=== PATIENT | female | born 1965 | race Caucasian/White ===

== ENCOUNTER 2017-06-07 16:15 | Inpatient (IN) | payer OTHER, MEDICAID ==
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
[2017-06-07] MEDS ORDERED: HALOPERIDOL LACT 5 MG/ML INJ IM ONE (16:36)
[2017-06-07 18:48] LABS: % IMMATURE GRANULYOCYTES 0.6 % (0.0-1.1); ABSOLUTE IMMATURE GRANULOCYTES 0.05 10^3/uL (0.00-0.10); ADD DIFF? NO; ADD MORPH? NO; ADD SCAN? NO; ATYPICAL LYMPHOCYTE FLAG 10 (0-99); FRAGMENT RBC FLAG 0 (0-99); HEMATOCRIT 35.8 % (38.0-47.0); HEMOGLOBIN 12.8 g/dL (12.6-16.3); LEFT SHIFT FLG 0 (0-99); LIPEMIA HEMOLYSIS FLAG 90 (0-99); MEAN CELL HEMOGLOBIN CONCENTR. 35.8 g/dL (32.4-36.7); MEAN CELL VOLUME 89.5 fL (81.5-99.8); MEAN PLATELET VOLUME 10.1 fL (8.7-11.7); PLATELET CLUMPS FLAG 0 (0-99); PLATELET COUNT 214 10^3/uL (150-400); RED CELL DISTRIBUTION WIDTH 12.4 % (11.5-15.2)
[2017-06-07 18:57] LABS: ANION GAP 11 mEq/L (8-16); CALCIUM 9.5 mg/dL (8.5-10.4); CARBON DIOXIDE 19 mEq/l (22-31); CHLORIDE 109 mEq/L (97-110); ETHANOL SERUM < 10 mg/dL (0-10); GLOMERULAR FILTRATION RATE 58; GLUCOSE 115 mg/dL (70-100); POTASSIUM 3.2 mEq/L (3.5-5.2); SALICYLATE < 1.0 mg/dL (2.0-20.0); SODIUM 139 mEq/L (134-144)
[2017-06-08] MEDS ORDERED: POTASSIUM CL 20 MEQ/15 ML UDCUP PO ONE (15:30)
[2017-06-08] MEDS ORDERED: MONTELUKAST SODIUM 10 MG TAB PO ONE (17:36)
[2017-06-08] MEDS ORDERED: LEVOTHYROXINE 112 MCG TAB PO ONE (17:38)
[2017-06-09] MEDS ORDERED: LEVOTHYROXINE 112 MCG TAB PO SCH (06:00)
[2017-06-09] MEDS: TOPIRAMATE 100 MG TAB PO SCH (08:26)
[2017-06-09] MEDS: TIOTROPIUM INHALER 18 MCG/DOSE 5 DOSE/MDI IH SCH (08:30)
[2017-06-09 14:31] VITALS: O2SAT 95
[2017-06-09] MEDS ORDERED: NICOTINE POLACRILEX 2 MG GUM B PRN (16:15)
[2017-06-09] MEDS ORDERED: LORazepam 0.5 MG TAB PO PRN (16:15)
[2017-06-09] MEDS ORDERED: MAGNESIUM HYDROXIDE 30 ML UDCUP PO PRN (16:15)
[2017-06-09] MEDS ORDERED: ACETAMINOPHEN 325 MG TAB PO PRN (16:15)
[2017-06-09] MEDS ORDERED: OLANZapine DISINTEGR 10 MG TAB PO PRN (16:15)
[2017-06-09] MEDS ORDERED: MAG HYDROX/AL HYDROX/SIMETH 30 ML UDCUP PO PRN (16:15)
[2017-06-09] MEDS ORDERED: LORazepam 1 MG TAB PO ONE (16:22)
[2017-06-09] MEDS ORDERED: HALOPERIDOL 5 MG TAB PO ONE (16:23)
[2017-06-09] MEDS ORDERED: LORazepam 2 MG/ML INJ IM PRN ×2 (16:24→16:38)
[2017-06-09] MEDS ORDERED: HALOPERIDOL LACT 5 MG/ML INJ IM PRN ×3 (16:24→16:38)
[2017-06-09] MEDS ORDERED: BENZTROPINE MESYLATE 2 MG/2 ML INJ IM PRN ×2 (16:27→16:38)
[2017-06-09] MEDS ORDERED: diphenhydrAMINE 50 MG CAP PO SCH (16:30)
[2017-06-09] MEDS ORDERED: MONTELUKAST SODIUM 4 MG CHEWABLE TAB PO SCH (18:00)
[2017-06-09] MEDS ORDERED: LURASIDONE HCL 20 MG TAB PO SCH (18:00)
[2017-06-09] MEDS ORDERED: MONTELUKAST SODIUM 10 MG TAB PO SCH (18:00)
[2017-06-09] MEDS: OLANZapine DISINTEGR 10 MG TAB PO SCH (19:48)
[2017-06-09] MEDS: BENZTROPINE MESYLATE 1 MG TAB PO SCH (19:48)
[2017-06-09] MEDS: LORazepam 1 MG TAB PO SCH (21:07)
[2017-06-10] MEDS: LORazepam 1 MG TAB PO SCH (08:26)
[2017-06-10] MEDS: TOPIRAMATE 100 MG TAB PO SCH ×2 (08:26→20:56)
[2017-06-10] MEDS: OLANZapine DISINTEGR 5 MG TAB PO SCH (08:27)
[2017-06-10] MEDS: BENZTROPINE MESYLATE 1 MG TAB PO SCH ×2 (08:27→20:56)
[2017-06-10] MEDS: TIOTROPIUM INHALER 18 MCG/DOSE 5 DOSE/MDI IH SCH (08:28)
[2017-06-10] MEDS ORDERED: LEVOTHYROXINE 112 MCG TAB PO SCH (10:00)
[2017-06-10] MEDS ORDERED: TROLAMINE SALICYLATE TP PRN ×2 (11:21→11:32)
[2017-06-10] MEDS ORDERED: ALOE VERA TP PRN ×2 (11:21→11:32)
[2017-06-10] MEDS ORDERED: NON-FORMULARY NEW DRUG (Omeprazole [Prilosec 20 Mg] 20 MG) PO SCH (11:30)
[2017-06-10] MEDS: PANTOPRAZOLE SODIUM 40 MG TAB PO SCH (13:59)
[2017-06-10] MEDS: LURASIDONE HCL 80 MG TAB PO SCH (13:59)
--- NOTE | 2017-06-10 14:46 | BCON ---
[f rep st] BEHAVIORAL HEALTH CONSULTATION INTERNAL MEDICINE CONSULTATION DATE OF CONSULTATION: 06/10/2017 REFERRING PHYSICIAN: Clay Gonzalez MD REASON FOR REFERRAL: Medical clearance for inpatient behavioral health stay. HISTORY OF PRESENT ILLNESS: This patient was brought to the [facility] Emergency Department on 06/07/2017. She has a history of bipolar disorder and she was agitated at the group home facility where she lives. She continued to be agitated in the emergency department and had emergency medications. She was eventually evaluated by the mental health team and admitted for further psychiatric care. PAST MEDICAL HISTORY: 1. Bipolar disorder. 2. Hypertension. 3. Hypothyroidism. 4. Fall, most recently 3 months ago. 5. History of seizures following a fall and head trauma. PAST SURGICAL HISTORY: She has had lumbar surgery, she reports L4-L5, and she has had knee surgery. MEDICATIONS: Prior to admission: 1. Acetaminophen 1000 mg p.o. q.8 hours p.r.n. 2. Levothyroxine 112 mcg p.o. daily. 3. Lurasidone 80 mg p.o. daily. 4. Montelukast 10 mg p.o. daily at 1800. 5. Omeprazole 20 mg p.o. daily. 6. Tiotropium 18 mcg inhaled daily. 7. Topiramate 200 mg p.o. twice daily. 8. Aspercreme 85 g topical q.3 hours p.r.n. 9. Clonidine 0.1 mg p.o. daily and 0.2 mg p.o. twice daily at 1800 and 2100. ALLERGIES: There is an allergy listed to penicillins. SOCIAL HISTORY: She is not . She has no children. She lives at [facility] for approximately the past year. 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 She is a tobacco smoker. Regarding the positive urine drug screen for marijuana, she reports that she does not smoke herself, but she assists people who are smoking and may not be able to hold their pipe, and gets secondhand marijuana smoke exposure. FAMILY HISTORY: Noncontributory. REVIEW OF SYSTEMS: She reports leg swelling. She says that Lasix was not effective to manage the swelling. She has some pain due to the swelling. She denies recent weight change, fevers, chills, cough, dyspnea, nausea, vomiting, constipation, diarrhea, dysuria or urinary frequency. Otherwise, a 10-point review of systems was negative. PHYSICAL EXAM: VITAL SIGNS: Blood pressure is 124/63, heart rate 67, respiratory rate 14, oxygen saturation 95% on room air, temperature 36.7 degrees centigrade. Her weight is 81.6 kg for a body mass index of 30.9. GENERAL : This is a well-nourished, well-developed, obese woman, sitting in the dining room, coloring in a coloring book, cooperative and in no acute distress. HEENT: Extraocular movements are intact. Pupils are equal, round, reactive to light. Mucous membranes are moist. She is edentulous. She has an uncrowded airway, Mallampati class 1. There are no oropharyngeal mucosal lesions. NECK: Supple. HEART: There is a regular rate and rhythm with no murmurs, rubs, or gallops. LUNGS: Clear to auscultation bilaterally. ABDOMEN: Benign. EXTREMITIES: There is no cyanosis or clubbing. There is 2+ edema to the left lower extremity pretibial, and trace to 1+ on the right. Radial pulses are 2+ bilaterally. Pedal pulses are not detectable. NEUROLOGIC: She is alert, she is oriented to her current situation and reports that she desires to return to [place]. Orientation to date was not tested. Cranial nerves 2-12 are grossly intact. There is no focal weakness. Sensation is intact to light touch. There is no tremor. LABORATORY STUDIES: From the emergency department, CBC showed very mild anemia with a hematocrit of 35.8, hemoglobin was normal as was the rest of the CBC. Serum chemistry revealed a low potassium at 3.2 and a low carbon dioxide at 19; otherwise, renal function and electrolytes were within normal limits. Glucose was elevated at 115 but this may not have been fasting. Toxicology screen in the serum was negative for salicylates, acetaminophen or ethyl alcohol. Toxicology screen in the urine was non-negative for marijuana but otherwise negative for substances of abuse. ASSESSMENT/RECOMMENDATIONS: 1. Mental health issues, pending further evaluation and management per Psychiatry and the mental health team. 2. Edema. She reports this has been long-standing. I do not have suspicion for deep venous thrombosis. She would probably benefit from compression stockings but most likely, these would be contraindicated in the setting of the inpatient behavioral health unit. She appears to have normal renal function. I will not pursue the edema further,. She can follow up with Primary Care after her discharge. 3. Hypertension, appears to be adequately controlled with clonidine. This is not first-line medication and it is unclear how clonidine became her antihypertensive. I imagine it might be beneficial regarding psychiatric issues as it reduces central sympathetic discharge. If blood pressure is not adequately controlled, might consider addition of spironolactone at a low dose. 4. Hypokalemia of unclear etiology. She reports that she has been on furosemide in the past. She had potassium supplementation in the emergency department. I do not see a need to repeat labs at present. She can follow up with Primary Care after her discharge. 5. Tobacco dependence syndrome. Encouraged smoking cessation. 6. Hypothyroidism. If her behavior proves refractory to other measures, consider checking TSH, but she did not appear to be overtly hypo or hyperthyroid at present. 7. Obesity. Advise caution regarding medications that could cause additional weight gain. 8. Seizure disorder, presumably this is why she is on topiramate. Advise continuing this medication. I see no medical contraindication to this patient's continued stay on the inpatient behavioral health unit or to any psychiatric medications or procedures. Thank you very much for including me in the care of this patient. Please do not hesitate to contact me or the hospitalist service should there be need for further medical evaluation. /[id number]/MODL MTDD
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
[2017-06-10] MEDS: OLANZapine DISINTEGR 10 MG TAB PO SCH (20:56)
[2017-06-11] MEDS: LEVOTHYROXINE 112 MCG TAB PO SCH (06:07)
[2017-06-11] MEDS: TIOTROPIUM INHALER 18 MCG/DOSE 5 DOSE/MDI IH SCH (09:21)
[2017-06-11] MEDS: LURASIDONE HCL 80 MG TAB PO SCH (09:21)
[2017-06-11] MEDS: TOPIRAMATE 100 MG TAB PO SCH ×2 (09:21→19:52)
[2017-06-11] MEDS: OLANZapine DISINTEGR 5 MG TAB PO SCH (09:22)
[2017-06-11] MEDS: BENZTROPINE MESYLATE 1 MG TAB PO SCH ×2 (09:22→19:51)
[2017-06-11] MEDS: PANTOPRAZOLE SODIUM 40 MG TAB PO SCH (09:22)
[2017-06-11] MEDS ORDERED: PNEUMOCOCCAL 0.5ML VACCINE VIAL IM ONE (15:00)
--- NOTE | 2017-06-11 16:24 | SOAPPROG ---
SOAP Progress Note Assessment/Plan: Assessment: Plan: 06/11/17 16:24 Doing well. No evidence of unstable illness at this time. No behavioral issues. Will CCM, contact SNF to arrange d/c plan. Subjective: Pt seen, discussed with staff. Calm and appropriate. INteracting well with others. No irritability or aggression. Able to discuss situation preceding admission and she identifies the interpersonal conflict with the RN and other stressors as being inciting factors for her aggression. Compliant with all meds here. Objective: Vital Signs Temp Pulse Resp BP Pulse Ox 36.7 C 75 14 102/63 95 06/11/17 06:00 06/11/17 06:00 06/11/17 06:00 06/11/17 10:24 06/11/17 06:00 - Time Spent With Patient Time Spent With Patient: 25" ICD10 Worksheet Patient Problems: Problems Problem Status Onset Acute psychosis Acute
[2017-06-11] MEDS: OLANZapine DISINTEGR 10 MG TAB PO SCH (19:51)
[2017-06-12] MEDS: LEVOTHYROXINE 112 MCG TAB PO SCH (06:06)
[2017-06-12 06:43] VITALS: BP 131/77; PULSE 109; RESP 18; TEMP 99
[2017-06-12] MEDS: TIOTROPIUM INHALER 18 MCG/DOSE 5 DOSE/MDI IH SCH (08:43)
[2017-06-12] MEDS: BENZTROPINE MESYLATE 1 MG TAB PO SCH (08:43)
[2017-06-12] MEDS: OLANZapine DISINTEGR 5 MG TAB PO SCH (08:44)
[2017-06-12] MEDS: TOPIRAMATE 100 MG TAB PO SCH (08:44)
[2017-06-12] MEDS: PANTOPRAZOLE SODIUM 40 MG TAB PO SCH (08:44)
[2017-06-12] MEDS: LURASIDONE HCL 80 MG TAB PO SCH (08:44)
== END 2017-06-12 13:22 | DRG 885 ==
LOC: EDUNIT# → BBEH 06-09 15:17
PROVIDERS: ADMIT Psychiatry & Neurology Psychiatry; ATTEND Psychiatry & Neurology Psychiatry
DX: F25.0 Schizoaffective disorder, bipolar type (principal); E87.6 Hypokalemia; I10 Essential (primary) hypertension; E03.9 Hypothyroidism, unspecified; R56.1 Post traumatic seizures; F17.210 Nicotine dependence, cigarettes, uncomplicated; J44.9 Chronic obstructive pulmonary disease, unspecified; E66.9 Obesity, unspecified; Z68.30 Body mass index [BMI] 30.0-30.9, adult
CPT/HCPCS: 80305; G0009; G0480

== ENCOUNTER 2018-11-23 08:05 | Emergency (ER) | payer OTHER, MEDICAID ==
--- NOTE | 2018-11-23 08:07 | EDPHY ---
H & P Time Seen by Provider: 11/23/18 08:07 HPI/ROS: CHIEF COMPLAINT: Head injury HISTORY OF PRESENT ILLNESS: Patient is a resident at [facility] and went out at 2:00 a.m. To buy cigarettes. She says she tripped and fell down hitting her head and thinks she had a loss of consciousness for 20-30 minutes based on her watch. She was sent to the ER this morning for evaluation after staff noticed a scalp laceration. Right now the patient denies any medical complaints. She denies headache or weakness or numbness in extremities or chest pain or shortness of breath. She thinks that it was mechanical and not syncope. REVIEW OF SYSTEMS: Eye: no change in vision ENT: no sore throat Cardiac: no chest pain or syncope Pulmonary: no cough or SOB Abdomen: no vomiting, diarrhea, abdominal pain Musculoskeletal: no back pain or neck pain or extremity pain, does have chronic lower extremity edema Skin: Skin laceration Neuro: no headache Constitutional: no fever : no urinary symptoms A comprehensive 10 point review of systems is otherwise negative aside from elements mentioned in the history of present illness. PAST MEDICAL HISTORY: Includes bipolar, hypothyroid, seizure disorder, hypertension, PTSD, COPD Social history: Smoker General Appearance: Alert and conversant, cooperative. Eyes: No scleral icterus. Pupils equal reactive extraocular motion intact. ENT, Mouth: No tongue laceration or abrasion. Respiratory: Normal respiratory effort, breath sounds equal, lungs are clear to auscultation. Cardiovascular: Regular rate and rhythm. Gastrointestinal: Abdomen is soft and non tender. Neurological: Alert, face symmetric, normal motor and sensory in extremities. Normal mentation, answers questions appropriately. Not tremulous. Skin: 2.5 cm occipital scalp laceration. Musculoskeletal: Some bilateral peripheral edema, no extremity bony tenderness. No thoracic or lumbar spine tenderness to palpation. She does have midline C-spine tenderness to palpation. Psychiatric: Not agitated. Emergency Department course/MDM: Differential diagnosis considered for head injury including but not limited to concussion, skull fracture, intraparenchymal contusion, subarachnoid, subdural and epidural hematoma. Appears by history to be mechanical fall with likely concussion, doubt seizure or syncope. CT head for head trauma and loss of consciousness, cervical spine because fails nexus criteria. Procedure: Laceration repair. Verbal consent was obtained from the patient. The 2.5 cm laceration on the scalp was anesthetized using 0.5% bupivacaine with epinephrine. The wound was irrigated with standard emergency department protocol, draped and explored. There were no deep structures involved. No foreign body found. The wound was repaired with dana. The wound repair was simple. Excellent hemostasis was obtained. Wound care instructions were discussed and the patient was warned regarding scarring. The procedure was performed by myself. 855: Negative head and cervical spine CT for trauma. Smoking Status: Heavy smoker Constitutional: Initial Vital Signs Temperature (C) 36.8 C 11/23/18 08:12 Heart Rate 79 11/23/18 08:12 Respiratory Rate 16 11/23/18 08:12 Blood Pressure 105/71 11/23/18 08:12 O2 Sat (%) 100 11/23/18 08:12 O2 Delivery Mode Room Air Allergies/Adverse Reactions: Penicillins Allergy (Verified 06/07/17 18:07) Home Medications: Medication Instructions Recorded Acetaminophen [Tylenol ES 500 mg 1,000 mg PO Q8 PRN 06/08/17 (*)] Trolamine Salicylate/Aloe Vera 85 gm TP Q3HRS PRN 06/08/17 [Aspercreme 10% Cream] Benztropine Mesylate [Cogentin] 1 mg PO BID #60 tab 06/12/17 Levothyroxine [Synthroid 112 mcg 112 mcg PO DAILY06 #30 tab 06/12/17 (*)] Lurasidone HCl [Latuda] 80 mg PO DAILY #30 tab 06/12/17 Montelukast Sodium [Singulair 10 10 mg PO DAILY@1800 #30 tab 06/12/17 mg (*)] Omeprazole [Prilosec 20 mg] 20 mg PO DAILY #30 capsule.dr 06/12/17 Tiotropium Inhaler [Spiriva 18 mcg IH DAILY #1 mdi 06/12/17 Handihaler] Topiramate [Topamax 100MG (*)] 200 mg PO BID #120 tab 06/12/17 Medical Decision Making - Diagnostics Imaging Results: Imaging Impressions Cervical Spine CT 11/23/18 08:11 Impression: 1. No definite acute cervical spine fracture. 2. Postsurgical changes at C5-C6 and C7-T1. 3. Multilevel degenerative disk disease resulting in mild to moderate central canal stenosis at C3-C4, C4-C5, C6-C7, and C7-T1. 4. If there is persistent pain or neurological deficit, recommend MRI cervical spine and consider flexion and extension views, if clinically indicated. Findings and recommendations discussed with emergency department physician, Kyaw Hernandez MD at 0850 hours on November 23, 2018. Final report concurs with initial preliminary interpretation. Head CT 11/23/18 08:11 Impression: 1. Normal CT brain without contrast. 2. Right occipital scalp laceration. No skull fracture. Findings and recommendations discussed with emergency department physician, Kyaw Hernandez MD at 0850 hours on November 23, 2018. Final report concurs with initial preliminary interpretation. Imaging: Discussed imaging studies w/ teacher physically impaired Radiologist - Data Points Medications Given: Discontinued Medications Diphtheria/Tetanus/Acell Pertussis (Boostrix) 0.5 ml IM .ONCE ONE Stop: 11/23/18 08:12 Last Admin: 11/23/18 08:16 Dose: 0.5 ml Departure - Departure Disposition: Home, Routine, Self-Care Clinical Impression: Occipital scalp laceration Qualifiers: Encounter type: initial encounter Qualified Code(s): S01.01XA - Laceration without foreign body of scalp, initial encounter Concussion Qualifiers: Encounter type: initial encounter Loss of consciousness presence/duration: with LOC of 30 min or less Qualified Code(s): S06.0X1A - Concussion with loss of consciousness of 30 minutes or less, initial encounter Condition: Good Instructions: Laceration (ED), Concussion (ED) Additional Instructions: Wound Care Follow-Up: Removal of sutures in 10 days. Suture removal is complimentary in uncomplicated cases. Infection or abnormal findings would require reevaluation by the MD. In that case, you may be billed. Referrals: Farideh Chadwick MD [Medical Doctor] - As per Instructions
[2018-11-23] MEDS ORDERED: TDAP ADULT 0.5 ML INJ (BOOSTRIX) IM ONE (08:11)
[2018-11-23 09:51] VITALS: BP 101/73
== END 2018-11-23 10:59 | disposition home or self-care (01) ==
LOC: EDUNIT#
PROC: 0HQ0XZZ Repair Scalp Skin, External Approach (ICD-10-PCS; principal; 2018-11-23)
DX: S01.01XA Laceration without foreign body of scalp, initial encounter (principal); S06.0X1A Concussion with loss of consciousness of 30 minutes or less, initial encounter; Z23 Encounter for immunization; W01.0XXA Fall on same level from slipping, tripping and stumbling without subsequent striking against object, initial encounter